=== PATIENT | male | born 1980 | race Caucasian/White ===

== ENCOUNTER 2025-05-11 15:34 | Emergency (ER) | payer SELFPAY ==
[~2025-05-11] VITALS: Ht 182.9 cm; Wt 85.3 kg
[2025-05-11] MEDS ORDERED: SODIUM CHLORIDE 0.9% 1,000 ML IV ONE (17:00)
[2025-05-11] MEDS ORDERED: KETOROLAC TROMETHAMINE 30 MG/ML VIAL IV ONE (17:00)
[2025-05-11 18:58] VITALS: BP 125/81
== END 2025-05-11 18:58 | disposition home or self-care (01) ==
LOC: ED 15:34
PROVIDERS: Emergency Medicine
DX: B27.90 Infectious mononucleosis, unspecified without complication (principal); K75.9 Inflammatory liver disease, unspecified
CPT/HCPCS: 76705; 80074; 86308; 96374; 99284-25; G0480; J1885; J7030